=== PATIENT | female | born 1975 | race Caucasian/White ===

== ENCOUNTER 2016-03-28 23:16 | Emergency (ER) | payer OTHER ==
[2016-03-28 23:25] VITALS: BP 155/109
[2016-03-28 23:48] LABS: Hematocrit 43.5 % (37.0-47.0); Hemoglobin 14.2 gm/dL (12.5-16.0); Mean Corpuscular Hemoglobin 27.7 pg (27-31); Mean Corpuscular Hgb Conc 32.6 g/dl (32-36); Mean Platelet Volume 9.4 fl (6.0-9.5); Neutrophil # 10.4 K/mm3 (1.3-6.0); Neutrophil % 68.3 % (42-75.0); Platelet Count 363 K/mm3 (150-450); Red Blood Count 5.12 M/mm3 (4.2-5.4); Red Cell Distribution Width 13.9 % (11.5-14.0); White Blood Count 15.2 K/mm3 (4.0-10.5)
--- NOTE | 2016-03-28 23:58 | ERNOTE ---
Dyspnea - Date Date of Service: 03/28/16 - General Presenting Symptoms: shortness of breath Source: patient Exam Limitations: no limitations - Immun/Allergies/Home Medications Immunizations: IMMUNIZATION HX Immunizations Up to Date Yes History of Influenza Vaccine No Hx Pneumococcal Vaccination No Allergies/Adverse Reactions: Allergies codeine Adverse Reaction (Severe, Verified 09/22/15 10:50) Itching Home Medications: HOME MEDICATIONS Oxybutynin Chloride [Ditropan Xl] 5 mg PO DAILY 09/22/15 [Last Taken Unknown] clonazePAM [Klonopin] 1 mg PO PRN 09/22/15 [Last Taken Unknown] Lamotrigine [Lamictal] 200 mg PO 1700 #30 tablet 09/24/15 [Last Taken Unknown] [place] Carbonate [[place] Carbonate ER] 450 mg PO 1700 #30 tablet.er 09/24/15 [ Last Taken Unknown] Azithromycin [Zithromax] 250 mg PO DAILY #4 tablet 03/29/16 [Last Taken Unknown] - History of Present Illness Narrative: 40-year-old female states that she awoke this evening about 10 PM with feeling of shortness of breath difficulty getting a full breath of air and some coughing. She stated she has a heaviness in her chest as well. No history of PE or LA. She states she felt well when she went to bed. Denies fever chills or other constitutional signs or symptoms. She does have a known history of anxiety disorder and I questioned whether this could be a panic attack. Date (Duration): 03/28/16 Time (Timing): 22:00 Severity: mild Initiating event: Reports: sleep Frequency of episodes: Reports: occassional episodes Modifying Factors - (Improves): Reports: rest Modifying Factors (Worsens): Reports: activity Associated Symptoms-Dyspnea: Reports: chest pain/discomfort, cough, anxiety. Denies: wheezing Review of Systems - Review of Systems Constitutional: Present: See HPI EYE: Present: no symptoms reported ENT: Present: no symptoms reported Respiratory: Present: See HPI Cardiology: Present: See HPI Gastrointestinal/Abdominal: Present: no symptoms reported Genitourinary: Present: no symptoms reported Musculoskeletal: Present: other - chest wall pain Neurological: Present: no symptoms reported Endocrine: Present: no symptoms reported Hematologic/Lymphatic: Present: no symptoms reported Psych: Present: anxiety - Patient's Past Medical History Patient History - Medical: No pertinent hx, Anxiety, Diabetes Type 2, Depression , Fibromyalgia, Hypothyroidism, Obesity Patient History - Cardiac/Respiratory: No pertinent hx, Hypertension Patient History - Cancer: No Hx of Cancer Patient History - Surgical Procedures: Tubal Ligation, T & A, Other LMP (females 10-50): 1 month - Family History Mother Family History - Medical: Bipolar Family History - Cardiac/Respiratory: Hypertension - Social History Living Situations: home Smoking Status: Never smoker Have you smoked in the past 12 months: No Do you dip or chew tobacco: No Patient requests Smoking Cessation Consult: No Initiate information on Smoking Cessation: No Alcohol Use: occasionally Drug Use: none Physical Exam - Physical Exam General Appearance: Present: mild distress, obese Eye Exam: Normal inspection: bilateral, PERRL: bilateral Ears, Nose, Throat: Present: normal ENT inspection, hearing grossly normal, normal pharynx Neck: Present: normal inspection, nontender Respiratory: Present: no respiratory distress, normal breath sounds, no accessory muscle use, chest nontender, lungs clear Cardiovascular/Chest: Present: regular rate, rhythm, no murmur, normal peripheral pulses, chest tenderness - costochondral bilaterally Gastrointestinal/Abdominal: Present: tenderness - epigastric Rectal Exam: Present: deferred Back Exam: Present: normal inspection, normal range of motion, no CVA tenderness , no vertebral tenderness Extremity Exam: Present: normal inspection, non-tender, no edema, normal range of motion Neurological Exam: Present: alert, oriented, normal mood/affect, no motor/ sensory deficits Skin Exam: Present: normal color, warm/dry Lymphatic Exam: Present: no adenopathy ED Progress - Results and Orders Patient's Lab Results:: I have reviewed the patient's lab results. Results and Orders: Elevated white blood cell count 15,200 Troponin is negative D-dimer is negaitve at 0.34 - Vital Signs Patient's Vital Signs:: I have reviewed the patient's vital signs. Vital Signs: Vital Signs 03/28/16 23:19 Temperature 36.3 C L Pulse Rate 113 H Respiratory 20 Rate Blood Pressure 155/109 O2 Sat by Pulse 97 Oximetry - EKG EKG: NSR, supraventricular tachycardia, no ST T wave changes - X-Ray X-Ray #1 X-Ray: chest - heavy bronchial markings consistent with bronchitis - Progress/Reassessment Chief Complaint: Dyspnea Progress:: Unchanged Departure Clinical Impression: Acute bronchitis Qualifiers: Bronchitis organism: unspecified organism Qualified Code(s): J20.9 - Acute bronchitis, unspecified - Departure Disposition: Home self-care Condition: Fair Instructions: Acute Bronchitis Additional Instructions: fill the prescription for the rest of the antibiotics to be taken once a day for 4 days. Robitussin or Dayquill and NightQuill for cough and cold symptoms. follow up with your doctor if not better in a week Referrals: Apolinar Gonzalez DO [Primary Care Provider] - Prescriptions: Azithromycin [Zithromax] 250 mg PO DAILY #4 tablet
[2016-03-29] MEDS ORDERED: AZITHROMYCIN 250 MG TABLET ONE (00:25)
[2016-03-29] MEDS ORDERED: AZITHROMYCIN 250 MG TABLET PO ONE (00:26)
== END 2016-03-29 00:34 | disposition home or self-care (01) ==
LOC: ER 23:16
DX: J20.9 Acute bronchitis, unspecified (principal); F32.9 Major depressive disorder, single episode, unspecified